=== PATIENT | male | born 1970 | race Caucasian/White ===

== ENCOUNTER 2018-08-23 16:42 | Observation (INO) | payer MEDICAID ==
[~2018-08-23] VITALS: Ht 185.4 cm; Wt 96.2 kg
--- OUTSIDE RECORDS SUMMARY | 2018-08-23 16:46 | XMS ---
PreManage Notification: DOROTHEA ALAN Security Dictaphone Operator Events No recent Security Events currently on file CRITERIA MET - 6 ED Visits in 6 Months CARE PROVIDERS TRISTAN NEELY Counselor: Mental Health Current PHONE: [phone] JAVI MUÑIZ Physician Director Of Event Sales 07/27/2018-Current PHONE: Unknown [place] Counselor: Mental Health Current PHONE: [phone] PCP_Unattributed Primary Care 07/27/2018-Current PHONE: Unknown ANTONINO Srinivasan Primary Care 09/16/2017-Current PHONE: Unknown ROSELYN MUÑIZ Primary Care Current PHONE: Unknown Yasmine has no Care Guidelines for this patient. [place] VISIT COUNT (12 MO.) 4 [facility] TOTAL 7 NOTE: Visits indicate total known visits. ED/UCC VISIT TRACKING (12 MO.) 08/23/2018 16:43 [facility] [place] TYPE: Emergency COMPLAINT: - VOMITING 05/29/2018 18:21 [facility] [place] TYPE: Emergency DIAGNOSES: - Diarrhea - Diarrhea, unspecified - suicidal - Major depressive disorder, single episode, unspecified 05/14/2018 14:18 [facility] TYPE: Emergency DIAGNOSES: - Poisoning by benzodiazepines, intentional self-harm, initial encounter - Poisoning by unspecified drugs, medicaments and biological substances, intentional self-harm, initial encounter - Poisoning by beta-adrenoreceptor antagonists, intentional self-harm, initial encounter - Poisoning by calcium-channel blockers, intentional self-harm, initial encounter - Hypoglycemia 05/12/2018 19:40 [facility] TYPE: Emergency DIAGNOSES: - Suicide Attempt - Poisoning by unspecified drugs, medicaments and biological substances, intentional self-harm, initial encounter - Drug Overdose 04/27/2018 14:57 [facility] [place] TYPE: Emergency DIAGNOSES: - Cardiomyopathy, unspecified - Other specified diabetes mellitus without complications - Hypoglycemia, unspecified - long-term (current) use of insulin - Hypoglycemia - Poisoning by insulin and oral hypoglycemic [antidiabetic] drugs, undetermined, initial encounter - Adjustment disorder with depressed mood 04/10/2018 10:14 [facility] COMPLAINT: - PT STATES CHEST PAIN 02/04/2018 19:04 [facility] [place] TYPE: Emergency COMPLAINT: - SEVERE HYPERGLYCEMIA,NEW DX OF DM,VOL DEPL INPATIENT VISIT TRACKING (12 MO.) 05/19/2018 18:57 [facility]DANA DORSEY M[facility] TYPE: Psychiatric Services DIAGNOSES: - Poisoning by unspecified drugs, medicaments and biological substances, intentional self-harm, initial encounter 05/14/2018 20:02 [facility] CHANDANA DORSEY M.C[facility] TYPE: Medical Surgical DIAGNOSES: - Poisoning by unspecified drugs, medicaments and biological substances, intentional self-harm, initial encounter 05/12/2018 21:54 [facility] [place] H. TYPE: Intensive Care DIAGNOSES: - Poisoning by unspecified drugs, medicaments and biological substances, intentional self-harm, initial encounter - Chronic combined systolic (congestive) and diastolic (congestive) heart failure 02/04/2018 19:04 [facility] [place] TYPE: Medical Surgical COMPLAINT: - SEVERE HYPERGLYCEMIA,NEW DX OF DM,VOL DEPL DIAGNOSES: - Type 2 diabetes mellitus with hyperglycemia 09/16/2017 12:21 [facility] [place] TYPE: Medical Surgical COMPLAINT: - CHF EXACERBATION DIAGNOSES: - Acute on chronic systolic (congestive) heart failure [email or web address]
[2018-08-23] MEDS ORDERED: COREG6.25 MG PO ×2 (16:59→17:04)
[2018-08-23] MEDS ORDERED: KLOR-CON 1010 MEQ PO (17:00)
[2018-08-23] MEDS ORDERED: OMEPRAZOLE20 MG PO (17:01)
[2018-08-23] MEDS ORDERED: NORVASC5 MG PO (17:01)
[2018-08-23] MEDS ORDERED: METOLAZONE5 MG PO (17:02)
[2018-08-23] MEDS ORDERED: BUPROPION XL150 MG PO (17:03)
[2018-08-23] MEDS ORDERED: PAXIL20 MG PO (17:03)
[2018-08-23] MEDS ORDERED: FUROSEMIDE20 MG PO (17:04)
[2018-08-23] MEDS ORDERED: TORSEMIDE100 MG PO (17:05)
[2018-08-23] MEDS ORDERED: LISINOPRIL5 MG PO (17:05)
[2018-08-23] MEDS ORDERED: BUSPIRONE HCL7.5 MG PO (17:05)
[2018-08-23] MEDS ORDERED: ADULT ASPIRIN R81 MG PO (17:06)
[2018-08-23] MEDS ORDERED: PROZAC10 MG PO (17:06)
[2018-08-23] MEDS ORDERED: LOSARTAN POTASS25 MG PO (17:06)
--- NOTE | 2018-08-23 21:00 | NUR ---
PT ADMITTED TO ROOM 126. PT IS A MED-SURG PATIENT, BUT IS HOUSE CONVENIENCED AT THIS TIME. PT ARRIVED WITH HIS SISTER AT THE BED SIDE. PT IS PLEASANT AND COOPERATIVE. PT IS AGREEABLE TO PLAN OF CARE. WILL CONTINUE TO CLOSELY MONITOR.
--- NOTE | 2018-08-23 22:15 | NUR ---
MEDICATIONS ADMINISTERED. PT EDUCATED TO CALL IF HE NEEDS ANYTHING OR NEEDS TO GET UP. UPDATED ON PLAN OF CARE. PT HAS JELLOS, BROTH, AND WATER AT BEDSIDE AND IS TOLERATING THEM WELL SO FAR. PT DENIES N/V. PT USES URINAL AT THE BEDSIDE. WILL CONTINUE TO MONITOR.
--- NOTE | 2018-08-23 22:45 | NUR ---
PT CALLED AND STATED "I JUST FEEL JITTERY, AND ANXIOUS". DISCUSSED WITH PATIENT RELAXATION OPTIONS AND MEDICATION. DECREASED STIMULATION IN PTS ROOM AND GAVE PRN ATIVAN FOR INCREASED ANXIETY. PT DENIES ANY OTHER NEEDS AT THIS TIME. WILL CONTINUE TO CLOSELY MONTIOR.
--- NOTE | 2018-08-24 00:05 | NUR ---
ADMIT TO CCU PER STRETCHER. IS ALERT AND ORIENTED AND GOOD HISTORIAN. HAS DRSG IN PLACE TO L HIP. HAD HIP REPAIR IN JULY FOR FX HIP. WAS INFORMED DRSG WAS CHANGED TODAY AT [facility] WHERE PT HAS BEEN RECIEVING REHAB. HAS LARGE BRUISE L POST BUTTOCKS AND DISCOLORING DOWN L LEG. ALSO HAS DARK BLUE BRUISE R LOWER LEG/R ANKLE AREA. ATTENDS REMOVED, 16F FLOREZ CATH INSERTED WITHOUT PROBLEM, RETURN YELLOW URINE. PT ARRIVED TO UNIT IN NSR. ORAL CARDIZEM GIVEN ON ARRIVAL.WILL HOLD CARDIZEM INFUSION FOR NOW. WITH PT AND HE STATED HE WAS TOLD THAT PT'S CONDITION WAS DUE TO HER CANCER AND ASKED REPEATEDLY IF THIS WAS SO. DID AFIRM THAT PT'S OVERALL WEAKNESS WAS PROBABLY DUE TO CANCER AND THAT THE DYSRYTHMIA COULD BE. DID LEAVE TO GO HOME AFTER REASURANCE.
--- NOTE | 2018-08-24 00:50 | NUR ---
PT RESTING WELL. PT HAS CALL LIGHT IN REACH. PTS SISTER CALLED TO CHECK IN ON PT. VITAL SIGNS REMAIN STABLE. PT IS ON THE HEART MONITOR PER ORDERS. WILL CONTINUE TO CLOSELY MONTIOR.
--- NOTE | 2018-08-24 02:27 | NUR ---
PT RESTING IN BED ON HIS SIDE. PT HAS URINAL AT BEDSIDE. PT DENIES ANY NEEDS AT THIS TIME. WILL CONTINUE TO CLOSELY MONITOR.
--- NOTE | 2018-08-24 04:36 | NUR ---
PT RESTING IN BED. VITALS STABLE. PT USING URINAL INDEPENDENTLY. PT CALLS APPROPRIATELY. WILL CONTINUE TO CLOSELY MONITOR.
--- NOTE | 2018-08-24 05:30 | NUR ---
PT RSTING IN BED. FRESH WATER AT BEDSIDE. URINAL EMPTIED. PT STATES "THIS IS THE BEST I HAVE FELT IN DAYS, AND THE BEST SLEEP I HAVE GOTTEN". PT DENIES NAUSEA AND ABDOMINAL PAIN. WILL CONTINUE TO CLOSELY MONITOR.
--- NOTE | 2018-08-24 07:30 | NUR ---
INTRODUCED MYSELF TO PT- HE'S RESTING IN BED WITH NO C/O PAIN. HE STATES HIS N/V HAS GONE AWAY AND HE WOULD LIKE TO EAT SOLIDS. WILL FOLLOW UP ON THIS WITH DR. JACKSON. PT DENIES ANY FURTHER NEEDS RIGHT NOW. CALL LIGHT WITHIN REACH. WILL CONTINUE TO MONITOR.
--- NOTE | 2018-08-24 08:30 | NUR ---
DR. GARCIA ROUNDED ON PATIENT THIS MORNING, DIET ADVANCED TO BLAND/SOFT. PATIENT ABLE TO EAT BREAKFAST. MORNING MEDICAITONS ADMINISTERED. NO COMPLAINTS OF PAIN OR NAUSEA. APPEARS AAOX3. PLAN FOR PATIENT TO STAY FOR AWHILE TODAY FOR FURTHER OBSERVATION.
--- NOTE | 2018-08-24 08:41 | NUR ---
ASSESSMENT COMPLETED AT THIS TIME. PT IS PLEASANT, CALM AND COOPERATIVE WITH A FLAT AFFECT. PT DENIES PAIN, N/V AND SOB. HE STATES HE FEELS "MUCH BETTER." PT IS ASKING ABOUT WHEN HE CAN ADVANCE HIS DIET AND START EATING SOLIDS. CLEAR LUNG SOUNDS. ROOM AIR. ADEQUATE URINE OUTPUT. PT ASKING ABOUT WHEN HE CAN GO HOME. EDUCATION COMPLETED WITH PT. HE DENIES ANY FURTHER NEEDS AT THIS TIME. CALL LIGHT WITHIN REACH. WILL CONTINUE TO MONITOR.
--- NOTE | 2018-08-24 10:46 | NUR ---
PATIENT REQUESTING MORE FOOD, DISCUSSED [facility] PRIMARY NURSE. PATIENT ORDERED SALMON, AND RICE. DENIES ANY OTHER NEEDS AT THIS TIME. RESTING BACK IN BED. CALL [facility] WITHIN REACH.
--- NOTE | 2018-08-24 11:35 | NUR ---
PT HAS EATEN 100% OF HIS SALMON AND RICE. PT STILL DENIES N/V. NO ABD PAIN OR DISCOMFORT. PT VERY PLEASANT. CALL LIGHT WITHIN REACH. WILL CONTINUE TO MONITOR.
[2018-08-24] MEDS ORDERED: ALDACTONE25 MG PO (11:44)
--- NOTE | 2018-08-24 12:35 | NUR ---
NOTIFIED DR. JACKSON AT THIS TIME OF PT'S STATEMENT THAT HE CONTINUES TO HAVE NO N/V. NO PAIN. HE STATES THAT HE FEELS WELL WITHOUT PAIN. PLAN IS TO RECHECK BMP AND POSSIBLE DC TODAY. ASSESSMENT COMPLETED AGAIN AT THIS TIME. NO CHANGES FROM EARLIER ASSESSMENT. PT DENIES ANY NEEDS TO BE MET AT THIS TIME. CALL LIGHT WITHIN REACH. WILL CONTINUE TO MONITOR.
--- NOTE | 2018-08-24 13:21 | NUR ---
MED REC COMPLETE
== END 2018-08-24 15:00 | disposition home or self-care (01) ==
LOC: ED 16:42 → CCU 16:44
PROVIDERS: ADMIT Internal Medicine
DX: N17.9 Acute kidney failure, unspecified (principal); R11.2 Nausea with vomiting, unspecified; R10.9 Unspecified abdominal pain; E86.0 Dehydration; M79.10 Myalgia, unspecified site; E11.22 Type 2 diabetes mellitus with diabetic chronic kidney disease; N18.3 Chronic kidney disease, stage 3 (moderate); I50.23 Acute on chronic systolic (congestive) heart failure; F32.9 Major depressive disorder, single episode, unspecified; F41.9 Anxiety disorder, unspecified; F43.10 Post-traumatic stress disorder, unspecified; I42.0 Dilated cardiomyopathy; I08.3 Combined rheumatic disorders of mitral, aortic and tricuspid valves; Z88.8 Allergy status to other drugs, medicaments and biological substances; Z87.891 Personal history of nicotine dependence; Z79.82 Long term (current) use of aspirin; Z79.899 Other long term (current) drug therapy
CPT/HCPCS: 36415; 71045; 80048; 80053; 81001; 83690; 83735; 85025; 87502; 96361; 96374; 96375; 96376; 99285-25; C9113; G0378; J1200; J2060; J2405; J2765; J3480; J7030

== ENCOUNTER 2019-03-02 17:25 | Observation (INO) | payer OTHER ==
[~2019-03-02] VITALS: Ht 185.4 cm; Wt 104.8 kg
[~2019-03-02 17:25] MED LIST: ADULT ASPIRIN R81 MG PO; ALDACTONE25 MG PO; BUPROPION XL300 MG PO; BUSPIRONE HCL30 MG PO; COREG25 MG PO; COREG6.25 MG PO; COZAAR50 MG PO; CRESTOR10 MG PO; FUROSEMIDE20 MG PO; GLUCOPHAGE XR500 MG PO; KLOR-CON 1010 MEQ PO; LAMICTAL100 MG PO; LISINOPRIL5 MG PO; METOLAZONE5 MG PO; NEURONTIN300 MG PO; NORVASC5 MG PO; OMEPRAZOLE20 MG PO; ONDANSETRON HCL4 MG PO; PAXIL20 MG PO; POTASSIUM CHLO20 ME1 PO; PROZAC10 MG PO; SUCRALFATE1 GM PO; TORSEMIDE100 MG PO; VITAMIN B-121000 MCG PO; VITAMIN D5000 UNIT PO
--- OUTSIDE RECORDS SUMMARY | 2019-03-02 17:28 | XMS ---
PreManage Notification: DOROTHEA ALAN Security Exchange Mechanic Events No recent Security Events currently on file CRITERIA MET - Group Notification - [facility] - Has Care Guidelines - [facility] - 2 Visits in 30 Days CARE PROVIDERS MARIETTA HAMILTON Physician Freight Team Associate 01/31/2019-Current PHONE: Unknown TRISTAN NEELY Counselor: Mental Health Current PHONE: [phone] ANTONINO Srinivasan Physician Freight Team Associate 07/27/2018-Current PHONE: Unknown [place] Counselor: Mental Health Current PHONE: [phone] JAVI MUÑIZ Primary Care 07/27/2018-Current PHONE: [phone] ANTONINO Srinivasan Primary Care 09/16/2017-Current PHONE: Unknown ROSELYN MUÑIZ Primary Care Current PHONE: Unknown Guidelines Source: [facility] Guidelines Date: 01/31/2019 Care Coordination: Mental health services provided by [facility].\T\nbsp; Please contact [facility] with mental health concerns.\T\nbsp; Dereck/Rian Thompson: [phone]\T\ nbsp; Yesica: [phone]. 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 01/31/2019 [facility] - PATIENT HAS A FOLLOW UP APT WITH DR HAMILTON-PCP ON Thursday02/02/19 @ 4: 20PM. [place] V[facility] (12 MO.) [facility] [address] [facility] [address] Yasir [facility]ner TOTAL 9 NOTE: Visits indicate total known visits. ED/UCC VISIT TRACKING (12 MO.) [facility]2019 [facility] [place] [facility] COMPLAINT: - BLOOD PRESSURE AND SUGAR ISSUES 02/22/2019 10:04 [facility] [place] TYPE: Emergency COMPLAINT: - NAUSEA, ABD PAIN 01/30/2019 09:37 [facility] [place] TYPE: Emergency COMPLAINT: - VOMITING/CHEST PAIN 08/23/2018 16:43 [facility] [place] TYPE: Emergency COMPLAINT: - VOMITING 05/29/2018 18:21 [facility] TYPE: Emergency DIAGNOSES: - Diarrhea - Diarrhea, unspecified - suicidal - Major depressive disorder, single episode, unspecified 05/14/2018 14:18 [facility] [place] TYPE: Emergency DIAGNOSES: - Poisoning by benzodiazepines, intentional self-harm, initial encounter - Poisoning by unspecified drugs, medicaments and biological substances, intentional self-harm, initial encounter - Poisoning by beta-adrenoreceptor antagonists, intentional self-harm, initial encounter - Poisoning by calcium-channel blockers, intentional self-harm, initial encounter - Hypoglycemia 05/12/2018 19:40 [facility] [place] TYPE: Emergency DIAGNOSES: - Suicide Attempt - Poisoning by unspecified drugs, medicaments and biological substances, intentional self-harm, initial encounter - Drug Overdose 04/27/2018 14:57 [facility] TYPE: Emergency DIAGNOSES: - Cardiomyopathy, unspecified - Other specified diabetes mellitus without complications - Hypoglycemia, unspecified - exterminator helper (current) use of insulin - Hypoglycemia - Poisoning by insulin and oral hypoglycemic [antidiabetic] drugs, undetermined, initial encounter - Adjustment disorder with depressed mood 04/10/2018 10:14 [facility] [place] TYPE: Emergency COMPLAINT: - PT STATES CHEST PAIN INPATIENT VISIT TRACKING (12 MO.) 02/22/2019 10:05 [facility] [place] TYPE: Observation COMPLAINT: - NAUSEA, ABD PAIN DIAGNOSES: - Fatty (change of) liver, not elsewhere classified - Gastritis, unspecified, without bleeding - Nausea with vomiting, unspecified - Diaphragmatic hernia without obstruction or gangrene - Chronic systolic (congestive) heart failure - Nausea - Other ill-defined heart diseases - Other [place] [facility] [place] (current[place] drug therapy - Gastric ulcer, unspecified as acute or chronic, without hemorrhage or perforation - Type 2 diabetes mellitus with diabetic neuropathy, unspecified - Personal history of other diseases of the circulatory system - Allergy status to other drugs, medicaments and biological substances status - Anxiety disorder, unspecified - shelter (current) use of aspirin - Personal history of nicotine dependence - Esophagitis, unspecified - Hypokalemia - Right upper quadrant pain - shelter (current) use of oral hypoglycemic drugs 01/30/2019 09:38 [facility] [place] TYPE: Observation COMPLAINT: - HYPOKALEMIA DIAGNOSES: - Personal history of nicotine dependence - Nausea with vomiting, unspecified - Post-traumatic stress disorder, unspecified - Anxiety disorder, unspecified - Chronic systolic (congestive) heart failure - Other [place] [facility] [place] (current) drug therapy - Dehydration - Hypokalemia - Vomiting, unspecified - shelter (current) use of aspirin - Type 2 diabetes mellitus without complications - exterminator helper (current) use of oral hypoglycemic drugs - Allergy status to other drugs, medicaments and biological substances status - Major depressive disorder, single episode, unspecified - Epigastric pain 08/23/2018 16:44 [facility] [place] TYPE: Observation COMPLAINT: - [place] DIAGNOSES: - Major depressive disorder, single episode, unspecified - MYALGIA, UNSPECIFIED SITE - Acute kidney failure, unspecified - Nausea with vomiting, unspecified - Post-traumatic stress disorder, unspecified - Allergy status to other drugs, medicaments and biological substances status - Personal history of nicotine dependence - Anxiety disorder, unspecified - Type 2 diabetes mellitus with diabetic chronic kidney disease - Other [place] [facility] (current) drug therapy - Chronic kidney disease, stage 3 (moderate) - Acute on chronic systolic (congestive) heart failure - Dilated cardiomyopathy - Unspecified abdominal pain - Combined rheumatic disorders of mitral, aortic and tricuspid valves - exterminator helper (current) use of aspirin - Dehydration [facility]19[facility]2018 [facility] DIAGNOSES: - Poisoning by unspecified drugs, medicaments and biological substances, intentional self-harm, initial encounter 05/14/2018 20:02 [facility]: Medical Surgical DIAGNOSES: - Poisoning by unspecified drugs, medicaments and biological substances, intentional self-harm, initial encounter 05/12/2018 21:54 [facility] [place] TYPE: Intensive Care DIAGNOSES: - Poisoning by unspecified drugs, medicaments and biological substances, intentional self-harm, initial encounter - Chronic combined systolic (congestive) and diastolic (congestive) heart failure [email or web address]
--- NOTE | 2019-03-02 21:45 | EKG ---
[facility] [address] [place] [address] Signed Normal sinus rhythm ST \T\ T wave abnormality, consider inferolateral ischemia Abnormal ECG When compared with ECG of 22-FEB-2019 10:16, T wave inversion now evident in Inferior leads Confirmed by JESSICA VIVAR DO ([id number]) on 03/02/2019 9:45:14 PM Electronically Signed By: JESSICA VIVAR DO 03/02/19 2145 PATIENT NAME: DOROTHEA ALAN Electrocardiogram DATE OF : 74 PHYSICIAN: JESSICA VIVAR DO REPORT #: [id number] REPORT IS CONFIDENTIAL AND NOT TO BE RELEASED WITHOUT AUTHORIZATION
--- NOTE | 2019-03-02 22:12 | NUR ---
PATIENT ARRIVED TO THE FLOOR. PATIENT WAS ABLE TO AMBULATE TO THE RESTROOM AND VOID. PATIENTS ADMISSION COMPLETED. PATIENT PLACED ON TELE #10. PATIENTS IV FLUSHED AND IS NO LONGER PATENT. PATIENT OREINTED TO FLOOR, UNIT, AND ROOM. PATIENT VERBALIZED UNDERSTANDING ON USE OF THE CALL LIGHT. LENNOX RN IN THE ROOM TO DO ASSESMENT. NO NEEDS NOTED. CALL LIGHT IN REACH.
--- NOTE | 2019-03-02 23:19 | NUR ---
PATIENT'S IV WAS NOT FUNCTIONAL WHEN HE REACHED THE FLOOR WITH RACHEL, CAT SITTER. OLD IV WAS DC'D AND NEW 22G IV STARTED IN LFA, IV KCL STARTED. PATIENT HAVING NO PAIN. PATIENT VOIDING FINE PER URINAL. MOST OF ADMIT DONE BY CHARGE NURSE ANDRINA. RICHMONDEINT ON TELE#10 IN SR=70'S.
--- NOTE | 2019-03-03 01:05 | NUR ---
PATIENT HAS BEEN RESTING QUIETLY EYES CLOSED AND ON HIS RIGHT SIDE. LAST KCL RIDER FINISHED AND IV SHUT OFF AND FLUSHED AND DISCONNECTED. CALL LIGHT IN REACH.
--- NOTE | 2019-03-03 03:11 | NUR ---
PATIENT RESTING QUIETLY ON HIS LEFT SIDE WITH EYES CLOSED AND RESPIRATIONS EVEN UNTIL ASSESSMENT. NO C/O PAIN. CALL LIGHT IN REACH.
--- NOTE | 2019-03-03 05:06 | NUR ---
Patient has rested well most of the nnight once his admission and IV riders were done. Currently resting on his left side eyes closed and call light in reach.
--- NOTE | 2019-03-03 07:34 | NUR ---
0718: PT RESTING IN BED AND HE AWOKE UPON ENTERING HIS ROOM. REPORT RECIEVED FROM LENNOX MAK. PT DENIES ANY PROBLEMS AT THIS TIME. CALL MICHEL WITHIN REACH.
--- NOTE | 2019-03-03 09:28 | NUR ---
PT RESTING IN HIS BED WITH NO COMPLIANTS OTHER THAN "A SLIGHT HEADACHE". DON DENIES THE NEED FOR ANYTHING FOR HIS ALBRECHT. DON DENIES ANY NAUSEA AT THIS TIME. CALL MICHEL WITHIN REACH. PO RECEIVING IV POTASSIUM ORDERED AT THIS TIME.
--- NOTE | 2019-03-03 10:05 | NUR ---
PATIENT IS RESTING IN BED. WARM WASHCLOTH OFFERED. SHOWER OFFERED IF OK'D BY NURSE. CALL LIGHT IN REACH. NO FURTHER NEEDS AT THIS TIME.
--- NOTE | 2019-03-03 11:45 | NUR ---
MED REC COMPLETE
--- NOTE | 2019-03-03 11:46 | NUR ---
PT DENIES ANY PROBLEMS AT THIS TIME. IV POTASSIUM INFUSION COMPLETED.
--- NOTE | 2019-03-03 12:01 | NUR ---
Heart Failure- Met with patient. He is knowledgable about his medications and EF. He is scheduled for an outpatient heart failure education visit 03/09/19 at 1500 with this service. Weight monitoring: Scale present in home. Symptom management: Addressed monitoring and reporting changes in weight or symptoms utilizing Zones form. He has a Zones magnet at home. Medication routine- has two weekly pill reminder boxes
--- NOTE | 2019-03-03 13:56 | NUR ---
NOTIFIED OF K+ OF 2.9.
--- NOTE | 2019-03-03 13:57 | NUR ---
PT RESTING IN HIS BED WITH NO COMPLAINTS AT THIS TIME.
--- NOTE | 2019-03-03 14:04 | NUR ---
PATIENT RESTING IN BED. IV COVERED FOR SHOWER. WATER REFRESHED. PATIENT DENIES ANY FURTHER NEEDS AT THIS TIME. CALL LIGHT WITHIN REACH.
--- NOTE | 2019-03-03 14:40 | NUR ---
PT SHOWERED AND STATES HE FEELS A BIT BETTER NOW.
--- NOTE | 2019-03-03 15:50 | NUR ---
PT CONTINUES TO DENIE ANY PROBLEMS.
--- NOTE | 2019-03-03 18:05 | NUR ---
PT AMBULATING IN THE HALLS.
--- NOTE | 2019-03-03 20:21 | NUR ---
PATIENT JUST RESTING QUIETLY IN IN BED. NO NEEDS AT THIS TIME. WATCHING TV. CALL LIGHT IN REACH.
--- NOTE | 2019-03-03 20:38 | NUR ---
PTs VS, BS check and I&Os are complete. PT requested fresh ice water and did not need anything further.
--- NOTE | 2019-03-03 21:47 | NUR ---
PATIENT HAD 20MEQ OF KCL MIXED IN 100 CC WITH 20MG LIDOCAINE ADDED WHICH EQUALED 2ML 1% LIDOCAINE TO RUN OVER 2 HOURS. EVEN WITH THAT AND A HEAT PACK AND RUNNING IT WITH 100MLS AN HOUR OF NS TO DILUTE IT, PATIENT WAS CUSSING AND SWEARING DUE TO IV PAIN. STOPPED AND CALLED . HE SAID TO DC THE IV AND GIVE THE PATIENT ANOTHER 20MEQ OF ORAL KCL IN 30 MNUTES. IV KCL DC'D, IV STILL FLUSHES WELL AND DRAWS. PAIN IS GOING AWAY. HEAT PACK STILL IN PLACE. CALL LIGHT IN REACH.
--- NOTE | 2019-03-04 00:15 | NUR ---
PATIENT RESTING QUIETLY ON HIS RIGHT SIDE, RESPIRATIONS REGULAR AND EVEN AT 16. CALL LIGHT IN REACH.
--- NOTE | 2019-03-04 02:11 | NUR ---
PATIENT HAS BEEN RESTING QUIETLY ON HIS RIGHT SIDE, RESPIRATIONS REGULAR AND EVEN, EYES CLOSED CALL LIGHT IN REACH.
--- NOTE | 2019-03-04 04:01 | NUR ---
PATIENT ON HIS RIGHT SIDE IN BED RESTING QUIETLY AND HAS HAD NO COMPLAINTS. EYES CLOSED AT THIS TIME AND CALL LIGHT IN REACH.
--- NOTE | 2019-03-04 05:31 | NUR ---
PATIENT HAD A TOTAL OF 60MEQ OF PO KCL WITH 20MEQ OF THAT BECAUSE THE IV ORDER FOR KCL BURNED THE IV TO BADLY EVEN WITH LIDOCAINE AND EXTRA FLUIDS RUNNING WITH IT. AFTER THAT PATIENT HAS SLEPT WELL MOST OF THE NIGHT, EYES CLOSED, RESPIRATIONS EVEN AND REGULAR AND CALL LIGHT IN REACH. BASICALLY INDEPENDENT IN THE ROOM.
--- NOTE | 2019-03-04 07:17 | NUR ---
0706: REPORT RECEIVED FROM LENNOX MAK. PT SLEEPING, CALL MICHEL WITHIN REACH.
--- NOTE | 2019-03-04 08:06 | NUR ---
PATIENT SITTING UP IN BED TAKING HIS BREAKFAST. ICE WATER GIVEN. SETS UP BATHROOM FOR SHOWER. CALL LIGHT WITHIN REACH. NO OTHER NEEDS AT THIS TIME
--- NOTE | 2019-03-04 08:51 | NUR ---
PT RESTING IN HIS BED WITH NO COMPLAINTS OF PAIN OR SOB. CALL MICHEL WITHIN REACH. POTASSIUM LEVEL HAS INCREASED TO 3.4 THIS AM, ORDERS GIVEN. SEE EMAR.
--- NOTE | 2019-03-04 08:57 | NUR ---
PATIENT RESTING IN BED. RN IN ROOM. VITAL SIGNS AND I&O DONE. CALL LIGHT WITHIN REACH. NO OTHER NEEDS AT THIS TIME
--- NOTE | 2019-03-04 09:52 | NUR ---
PATIENT IV KCL INFUSION SLOWED TO RATE OF 75ML RUNNING CONCURRENT WITH IVF AT 50CC/HOUR.
--- NOTE | 2019-03-04 10:39 | NUR ---
PT STATES HIS IV SITE FEELS MUCH BETTER SINCE THE K+ IV RATE HAD BEEN DECREASED AND THE FLUID RUNNING WITH IT WAS INCREASED. IV SITE APPEARS HEALTHY WITH NO S/S OF INFILTRATION.
--- NOTE | 2019-03-04 13:14 | NUR ---
PT WATCHING TV AND HAS NO COMPLAINTS AT THIS TIME. A DISCUSSION ABOUT CHF TOOK PLACE AND TE STATES HE UNDERSTANDS WHY IT IS IMPORTANT TO WATCH HIS INTAKE AND TO DO DAILY WEIGHTS. TE HAS AN APPOINTMENT WITH [facility] NEXT WEEK.
--- NOTE | 2019-03-04 13:33 | NUR ---
PATIENT RESTING IN BED. VITAL SIGNS AND I&O DONE. ICE WATER GIVEN. CALL LIGHT WITHIN REACH. NO OTHER NEEDS AT THIS TIME
--- NOTE | 2019-03-04 14:26 | NUR ---
K+ IS 3.3, MD AWARE AND NEW ORDERS GIVEN. SEE EMAR.
--- NOTE | 2019-03-04 14:42 | NUR ---
PT HAS HIS FACE IN HIS HANDS AND IS ROCKING BACK AND FORTH AND IS CRYING. HE DENIES ANY PAIN BUT STATES HE IS HAVING SOME ANXIETY. DR VIVAR NOTIFIED. SEE EMAR.
--- NOTE | 2019-03-04 14:53 | NUR ---
Pt's friend in the room visiting with the pt. Pt medicated as ordered for his anxiety. Will continue to monitor.
--- NOTE | 2019-03-04 15:27 | NUR ---
Pt continues resting in bed and he states that his anxiety is now under control. Pt now talking about dinner and is looking at menu. K+ iv continues infusing and the pt is tolerating it well. The iv site appears healthy at this time.
--- NOTE | 2019-03-04 17:08 | NUR ---
PATIENT SITTING UP IN BED. VITAL SIGNS AND I&O DONE. HIGH DYASTOLIC BLOOD PRESSURE. RN NOTIFIED. CALL LIGHT WITHIN REACH. NO OTHER NEEDS AT THIS TIME
--- NOTE | 2019-03-04 17:22 | NUR ---
PT RESTING IN HIS BED AND HE APPEARS IN NO DISTRESS AND HE STATES HIS ANXIETY IS UNDER CONTROL.
--- NOTE | 2019-03-04 18:09 | NUR ---
Pt's K+ level this am was 3.4 and this was replaced and this afternoon it was 3.3. Potassium continues to be replaced both iv and po. The pt is being kept overnight per Dr Wren due to this. The pt is scheduled for another draw at 1900. The pt had an anxiety attack this afternoon and was treated with ativan with good results.
--- NOTE | 2019-03-04 19:10 | NUR ---
IN ROOM FOR REPORT, PT IS AWAKE IN BED. HE DENIES NEEDS AT THIS TIME. CALL LIGHT IS WITHIN REACH.
--- NOTE | 2019-03-04 19:55 | NUR ---
SPOKE WITH DR VIVAR ABOUT PT'S K+ LAB AT 4.0. PT WILL NOT BE RECEIVING MORE K+ TONIGHT THEREFORE TELE WON'T BE NECESSARY. PLAN IS FOR DC IN AM IF K+ REMAINS OK.
--- NOTE | 2019-03-04 21:00 | NUR ---
IN ROOM TO ADMINISTER MEDICATIONS AND COMPLETE ASSESSMENT. PT DENIES PAIN. HE DOES STATE INTERMITTENT SOB WHICH HE STATES HAS BEEN OCCURING ON AND OFF FOR SOME TIME AND CANNOT RELATE IT TO ANXIETY. HIS IV WAS INFILTRATED AND PAINFUL, REMOVED IV, CATH TIP INTACT AND PT TOLERATED WELL. DR VIVAR IS OKAY WITH LEAVING THE IV OUT. PT REPORTS N/T IN BOTTOMS OF FEET. HE DENIES NEEDS AT THIS TIME. CALL LIGHT IS WITHIN REACH.
--- NOTE | 2019-03-04 22:33 | NUR ---
PT STATED THAT HE IS HUNGRY, LAB SCIENTIST BROUGHT HIM A VEGGIE TRAY.
--- NOTE | 2019-03-05 00:10 | NUR ---
PT IS RESTING WITH EYES CLOSED, RESPIRATIONS ARE EVEN AND NONLABORED. CALL LIGHT IS WITHIN REACH.
--- NOTE | 2019-03-05 01:57 | NUR ---
PT IS RESTING WITH EYES CLOSED, RESPIRATIONS ARE EVEN AND NONLABORED. CALL LIGHT IS WITHIN REACH.
--- NOTE | 2019-03-05 03:25 | NUR ---
PT IS RESTING WITH EYES CLOSED, RESPIRATIONS ARE EVEN AND NONLABORED. CALL LIGHT IS CLOSE.
--- NOTE | 2019-03-05 05:29 | NUR ---
PT IS RESTING WITH EYES CLOSED, RR IS EVEN AND NONLABORED. CALL LIGHT IS WITHIN REACH.
--- NOTE | 2019-03-05 06:28 | NUR ---
PT IS ON AN 60 G CARB DIET WITH 2G SODIUM RESTRICTION. HIS DAILY WEIGHT THIS MORNING WAS 231LBS. LAST NIGHT'S K+ WAS 4.0. PT HAS NO IV WHICH IS OKAY WITH DR VIVAR. PT AMBULATES SBA/IND. UO IS QS AND LAST BM WAS YESTERDAY. PT MAY DC TODAY AND WOULD LIKE AN ESTIMATE OF WHAT TIME.
--- NOTE | 2019-03-05 07:26 | NUR ---
BEDSIDE REPORT RECEIVED FROM NOC RN, PT IS AWAKE AND INTERACTIVE. UP IN BED, BREAKFAST ORDERED, PT IS UPBEAT AND CONVERSIVE. DENIES DISCOMFORTS REQUESTS EARLY NOTIFICATION OF DC SO HE CAN NOTIFY HIS SENIOR ADVISORY. DENIES NEEDS AT THIS TIME.
[2019-03-05] MEDS ORDERED: POTASSIUM CHLO20 ME1 PO (08:52)
[2019-03-05] MEDS ORDERED: TORSEMIDE20 MG PO (08:53)
--- NOTE | 2019-03-05 09:17 | NUR ---
DR VIVAR INTO SEE PT WRITES DC ORDERS. PT OFFERED SHOWER AND ASSISTANCE REFUSES BOTH.
--- NOTE | 2019-03-05 09:36 | NUR ---
PHARMACIST REVIEWS MEDS AND CHANGES WITH PT HE ASKS APPROPRIATE QUESTIONS VERBALIZES UNDERSTANDING. DC INSTRUCTIONS GIVEN BY THIS MOTORCOACH OPERATOR, PT VERBALIZES UNDERSTANDING AGREES TO F/U WITH MD SCHEDULED.
--- NOTE | 2019-03-05 09:49 | NUR ---
FINAL VITALS TAKEN BP OF 134/[address] VIVAR NO NEW ORDERS. PT DENIES ANY QUESTIONS OR CONCERNS, AGREES HE IS CLEAR ON DC INSTRUCTIONS. PT WAITING FOR HIS RIDE AT THIS TIME
== END 2019-03-05 11:40 | disposition home or self-care (01) ==
LOC: ED 17:25 → MS 17:26
PROVIDERS: ADMIT Student in an Organized Health Care Education/Training Program
DX: E87.6 Hypokalemia (principal); I50.22 Chronic systolic (congestive) heart failure; I40.0 Infective myocarditis; B97.89 Other viral agents as the cause of diseases classified elsewhere; I10 Essential (primary) hypertension; E11.9 Type 2 diabetes mellitus without complications; F32.9 Major depressive disorder, single episode, unspecified; F41.9 Anxiety disorder, unspecified; F43.10 Post-traumatic stress disorder, unspecified; Z88.8 Allergy status to other drugs, medicaments and biological substances; Z87.891 Personal history of nicotine dependence; Z79.84 Long term (current) use of oral hypoglycemic drugs; Z79.82 Long term (current) use of aspirin; Z79.899 Other long term (current) drug therapy
CPT/HCPCS: 36415; 80048; 80053; 83690; 83735; 83880; 84100; 84132; 85025; 93005; 93010; 96365; 96374; 96375; 96376; 99284-25; C9113; G0378; J1815; J2060; J2405; J2550; J3480; J7060

== ENCOUNTER 2019-06-29 07:54 | Emergency (ER) | payer OTHER ==
[~2019-06-29] VITALS: Ht 185.4 cm; Wt 105.8 kg
[~2019-06-29 07:54] MED LIST changes: +TORSEMIDE20 MG PO
--- OUTSIDE RECORDS SUMMARY | 2019-06-29 07:58 | XMS ---
PreManage Notification: DOROTHEA ALAN Security Distillation Operator Helper Events No recent Security Events currently on file CRITERIA MET - Group Notification - [facility] Guidelines - [facility] CARE PROVIDERS MARIETTA HAMILTON Physician Fish Hatchery Worker 01/31/2019-Dayne CAIN PHONE: Unknown ANTONINO Srinivasan Physician Fish Hatchery Worker 07/27/2018-Current PHONE: Unknown [place] Counselor: Mental Health Current PHONE: [phone] ANTONINO Srinivasan Primary Care 07/27/2018-Current PHONE: Unknown ROSELYN MUÑIZ Primary Care Current PHONE: Unknown Guidelines Source: Clarissa \[employer]\ [facility] [place] IPA Guidelines Date: 03/04/2019 Care Coordination: Pt. is enrolled with [facility] case management, OBDULIO Murphy and BRITANY Whitehead\\[employer]; please contact [facility] if pt. presents to ED. Fax over any documents the ED would liked followed up on EDY.\TNewsMaven; FAX: [phone]\MessageParty; Additional care guidelines exist for the following facilities: [facility] ( 01/31/2019 ) Care History Medical/Surgical 02/23/2019 [facility] CHF HISTORY EF 20% RELATED TO VIRAL MYOCARDITIS GASTRIC ULCER - ON PROTON PUMP DAILY HIXTORY DM2 ANXIETY DISORDER 02/22/2019 [facility] - [facility] CASE MANAGEMENT REFERRAL MADE ON ON 02/01/19. 01/31/2019 [facility] - PATIENT HAS A FOLLOW UP APT WITH DR HAMILTON-PCP ON Thursday02/02/19 @ 4: 20PM. E.D. VISIT COUNT (12 MO.) [address] [facility] TOTAL 5 NOTE: Visits indicate total known visits. ED/UCC VISIT TRACKING (12 MO.) 06/29/2019 07:55 [facility] [place] TYPE: Emergency COMPLAINT: - NAUSEA, VOMITING 03/02/2019 17:25 [facility] [place] TYPE: Emergency COMPLAINT: - BLOOD PRESSURE AND SUGAR ISSUES 02/22/2019 10:04 [facility] [place] TYPE: Emergency COMPLAINT: - NAUSEA, ABD PAIN 01/30/2019 09:37 [facility] TYPE: Emergency COMPLAINT: - VOMITING/CHEST PAIN 08/23/2018 16:43 [facility] TYPE: Emergency COMPLAINT: - VOMITING INPATIENT VISIT TRACKING (12 MO.) 03/02/2019 17:26 [facility] TYPE: Observation COMPLAINT: - HYPOKALEMIA DIAGNOSES: - Hypokalemia - custodial (current) use of aspirin - Oth viral agents as the cause of diseases classd elswhr - Major depressive disorder, single episode, unspecified - termite treater (current) use of oral hypoglycemic drugs - Anxiety disorder, unspecified - Post-traumatic stress disorder, unspecified - Essential (primary) hypertension - 1 Type 2 diabetes mellitus without complications - Infective myocarditis - Allergy status to oth drug/meds/biol subst status - Personal history of nicotine dependence - Other termite exterminator (current) drug therapy - Chronic systolic (congestive) heart failure 02/22/2019 10:05 [facility] [place] TYPE: Observation COMPLAINT: - NAUSEA, ABD PAIN DIAGNOSES: - Fatty (change of) liver, not elsewhere classified - Gastritis, unspecified, without bleeding - Nausea with vomiting, unspecified - Diaphragmatic hernia without obstruction or gangrene - Chronic systolic (congestive) heart failure - Nausea - Other ill-defined heart diseases - Other termite exterminator (current) drug therapy - Gastric ulcer, unsp as acute or chronic, w/o hemor or perf - 1 Type 2 diabetes mellitus with diabetic neuropathy, unsp - Personal history of other diseases of the circulatory system - Allergy status to oth drug/meds/biol subst status - Anxiety disorder, unspecified - termite treater (current) use of aspirin - Personal history of nicotine dependence - Esophagitis, unspecified - Hypokalemia - Right upper quadrant pain - custodial (current) use of oral hypoglycemic drugs 01/30/2019 09:38 [facility] [place] TYPE: Observation COMPLAINT: - HYPOKALEMIA DIAGNOSES: - Personal history of nicotine dependence - Nausea with vomiting, unspecified - Post-traumatic stress disorder, unspecified - Anxiety disorder, unspecified - Chronic systolic (congestive) heart failure - Other termite exterminator (current) drug therapy - Dehydration - Hypokalemia - Vomiting, unspecified - custodial (current) use of aspirin - 1 Type 2 diabetes mellitus without complications - custodial (current) use of oral hypoglycemic drugs - Allergy status to oth drug/meds/biol subst status - Major depressive disorder, single episode, unspecified - Epigastric pain 08/23/2018 16:44 [facility] [place] TYPE: Observation COMPLAINT: - NORMAN DIAGNOSES: - Major depressive disorder, single episode, unspecified - MYALGIA, UNSPECIFIED SITE - Acute kidney failure, unspecified - Nausea with vomiting, unspecified - Post-traumatic stress disorder, unspecified - Allergy status to oth drug/meds/biol subst status - Personal history of nicotine dependence - Anxiety disorder, unspecified - 1 Type 2 diabetes mellitus w diabetic chronic kidney disease - Other jail (current) drug therapy - 1 Chronic kidney disease, stage 3 (moderate) - Myalgia, unspecified site - Acute on chronic systolic (congestive) heart failure - Dilated cardiomyopathy - Unspecified abdominal pain - Comb rheumatic disord of mitral, aortic and tricuspid valves - termite treater (current) use of aspirin - Dehydration [email or web address]
[2019-06-29] MEDS ORDERED: ZOFRAN4 MG PO (10:42)
[2019-06-29] MEDS ORDERED: PROMETHAZINE12.5 M1 PO (10:42)
== END 2019-06-29 11:10 | disposition home or self-care (01) ==
LOC: ED 07:54
DX: R11.2 Nausea with vomiting, unspecified (principal); E11.9 Type 2 diabetes mellitus without complications; F32.9 Major depressive disorder, single episode, unspecified; F41.9 Anxiety disorder, unspecified; F43.10 Post-traumatic stress disorder, unspecified; Z91.048 Other nonmedicinal substance allergy status; Z88.8 Allergy status to other drugs, medicaments and biological substances; Z79.899 Other long term (current) drug therapy; Z79.82 Long term (current) use of aspirin; Z79.84 Long term (current) use of oral hypoglycemic drugs
CPT/HCPCS: 80053; 81001; 83690; 85025; 87502; 96361; 96374; 96375; 96376; 99284-25; J2405; J2550; J7030

== ENCOUNTER 2020-11-20 13:18 | Emergency (ER) | payer MEDICARE, OTHER ==
[~2020-11-20] VITALS: Ht 188 cm; Wt 109.9 kg
[~2020-11-20 13:18] MED LIST changes: +CELECOXIB200 MG PO; +HYDROCODON-ACE1 EA11 PO; +IRON325 M1 PO; +JANUVIA50 MG PO; +JARDIANCE25 MG PO; +ONDANSETRON ODT8 MG PO; +PROMETHAZINE HC25 M1 PO; +PROMETHAZINE12.5 M1 PO; +SPIRONOLACTONE25 MG PO; +VICTOZA 2-0.6 MG/0.1 SUB-Q; +ZOFRAN4 MG PO
--- OUTSIDE RECORDS SUMMARY | 2020-11-20 13:24 | XMS ---
PreManage Notification: DOROTHEA ALAN Security Developmental Specialist Events No recent Security Events currently on file CRITERIA MET - Group Notification CARE PROVIDERS MARIETTA HAMILTON Physician Produce Weigher 01/31/2019-Current [facility]ONE[facility]Current PHONE: [phone] ROSELYN MUÑIZ Physician Produce Weigher 07/27/2018-Current PHONE: Unknown Cj Cisneros Eligibility Services Representative/Help Desk Intern 11/09/2018-Current PHONE: [phone] [place] Counselor: Mental Health Current PHONE: [phone] Care Guidelines exist for the following facilities: [facility] ( 09/10/2020 ) [facility] ( 08/27/2020 ) Care History Medical/Surgical 02/23/2019 [facility] CHF HISTORY EF 20% RELATED TO VIRAL MYOCARDITIS GASTRIC ULCER - ON PROTON PUMP DAILY HIXTORY DM2 ANXIETY DISORDER 02/22/2019 [facility] - [facility] CASE MANAGEMENT REFERRAL MADE ON ON 02/01/19. 01/31/2019 [facility] - PATIENT HAS A FOLLOW UP APT WITH DR HAMILTON-PCP ON Thursday02/02/19 @ 4: 20PM. E.D. VISIT COUNT ([address] [facility]. TOTAL 1 NOTE: Visits indicate total known visits. ED/UCC VISIT TRACKING (12 MO.) 11/20/2020 13:[address] [facility] [place] TYPE: Emergency COMPLAINT: - COLD SYMPTOMS INPATIENT VISIT TRACKING (12 MO.) No inpatient visits to display in this time frame [email or web address]
== END 2020-11-20 16:30 | disposition home or self-care (01) ==
LOC: ED 13:18
DX: B34.9 Viral infection, unspecified (principal); Z20.822 Contact with and (suspected) exposure to COVID-19; I50.9 Heart failure, unspecified; E11.9 Type 2 diabetes mellitus without complications; Z91.048 Other nonmedicinal substance allergy status; Z88.8 Allergy status to other drugs, medicaments and biological substances; Z79.899 Other long term (current) drug therapy; Z79.82 Long term (current) use of aspirin; Z79.84 Long term (current) use of oral hypoglycemic drugs
CPT/HCPCS: 71045; 80053; 85025; 96374; 96375; 99283-25; C9803; J1885; J2405; J7030; U0003

== ENCOUNTER 2023-08-28 13:04 | Emergency (ER) | payer MEDICARE, OTHER ==
[~2023-08-28] VITALS: Ht 188 cm; Wt 104.9 kg
[2023-08-28] MEDS ORDERED: SODIUM CHLORIDE 0.9% 1,000 ML IV ONE (13:30)
[2023-08-28] MEDS ORDERED: ondansetron HCL 4 MG/2 ML VIAL IV PRN (13:30)
[2023-08-28 13:45] LABS: BASOPHILS 0.5 % (0-2); EOSINOPHILS 0.2 % (0-6); HEMATOCRIT 43.4 % (35.0-50.0); MCH 29.2 (27-36); MCHC 34.6 g/dl (30-36); MCV 84.3 fl (81-99); MONOCYTES 13.4 % (0-12); NEUTROPHILS 79.9 % (39-80); PLATELET COUNT 216 K/uL (140-440); RBC 5.15 M/ul (4.3-5.7); RDW 13.1 (10.5-15.0)
[2023-08-28] MEDS ORDERED: ONDANSETRON ODT4 MG PO (13:52)
[2023-08-28] MEDS ORDERED: CHLORPROMAZINE100 MG PO (13:52)
[2023-08-28] MEDS ORDERED: OLMESARTAN MEDO20 MG PO (13:52)
[2023-08-28] MEDS ORDERED: CAPLYTA42 MG PO (13:52)
[2023-08-28] MEDS ORDERED: FENOFIBRATE200 MG PO (13:53)
[2023-08-28] MEDS ORDERED: OZEMPIC0.25 MG/02 SUB-Q (13:53)
[2023-08-28 14:00] LABS: ALBUMIN 4.3 g/dL (3.4-5.0); ALBUMIN/GLOBULIN RATIO 1.23 (1.1-2.4); ANION GAP 18.7 (7-21); BILIRUBIN, TOTAL 0.7 ng/dL (0.2-1.0); BUN/CREATININE RATIO 10.71 (6.0-28.6); CALCIUM 9.2 mg/dL (8.5-10.1); CREATININE, SERUM 1.4 mg/dL (0.70-1.30); POTASSIUM 3.7 mmol/L (3.5-5.1); PROTEIN, TOTAL 7.8 g/dL (6.4-8.2)
[2023-08-28] MEDS ORDERED: ACETAMINOPHEN 500 MG TAB PO ONE (14:00)
[2023-08-28 14:20] LABS: INFLUENZA B NAA NEGATIVE (NEGATIVE); RESPIRATORY SYNCYTIAL VIR NAA NEGATIVE (NEGATIVE)
[2023-08-28] MEDS ORDERED: KETOROLAC TROMETHAMINE 30 MG/ML VIAL IV ONE (15:15)
[2023-08-28] MEDS ORDERED: carvediloL 25 MG TAB PO ONE (16:00)
[2023-08-28] MEDS ORDERED: SODIUM CHLORIDE 0.9% 500 ML IV PRN (16:00)
[2023-08-28 16:49] VITALS: BP 144/92
--- NOTE | 2023-08-28 22:00 | EKG ---
[facility] [address] [facility] [place] [address] Signed Sinus tachycardia Otherwise normal ECG When compared with ECG of 02-MAR-2019 20:13, T wave inversion no longer evident in Inferior leads Confirmed by Devang Pierson MD () on 08/28/2023 10:00:08 PM Electronically Signed By: DEVANG PIERSON MD 08/28/232199 PATIENT NAME: DAYANNADOROTHEA FLORENCE Electrocardiogram DATE OF : 74 PHYSICIAN: DEVANG PIERSON MD REPORT #: [id number] REPORT IS CONFIDENTIAL AND NOT TO BE RELEASED WITHOUT AUTHORIZATION
== END 2023-08-28 16:47 | disposition home or self-care (01) ==
LOC: ED 13:04
PROVIDERS: Emergency Medicine
DX: J10.1 Influenza due to other identified influenza virus with other respiratory manifestations (principal); Z91.148 Patient's other noncompliance with medication regimen for other reason; I11.0 Hypertensive heart disease with heart failure; I50.9 Heart failure, unspecified; E11.9 Type 2 diabetes mellitus without complications; F32.A Depression, unspecified; F41.9 Anxiety disorder, unspecified; F43.10 Post-traumatic stress disorder, unspecified; Z91.048 Other nonmedicinal substance allergy status; Z88.8 Allergy status to other drugs, medicaments and biological substances; Z79.899 Other long term (current) drug therapy; Z79.85 Long-term (current) use of injectable non-insulin antidiabetic drugs; Z79.84 Long term (current) use of oral hypoglycemic drugs; Z79.82 Long term (current) use of aspirin
CPT/HCPCS: 36415; 71045; 80053; 85025; 87502; 93005; 93010; 96361; 96374; 96375; 96376; 99284-25; A9270; J1885; J2405; J7030; J7040; U0002

== ENCOUNTER 2023-09-01 09:14 | Emergency (ER) | payer MEDICARE, OTHER ==
[~2023-09-01] VITALS: Ht 188 cm; Wt 98.4 kg
[~2023-09-01 09:14] MED LIST changes: +CAPLYTA42 MG PO; +CHLORPROMAZINE100 MG PO; +FENOFIBRATE200 MG PO; +OLMESARTAN MEDO20 MG PO; +ONDANSETRON ODT4 MG PO; +OZEMPIC0.25 MG/02 SUB-Q
[2023-09-01] MEDS ORDERED: SODIUM CHLORIDE 0.9% 1,000 ML IV ONE ×2 (09:45→11:45)
[2023-09-01] MEDS ORDERED: KETOROLAC TROMETHAMINE 30 MG/ML VIAL IV ONE (09:45)
[2023-09-01] MEDS ORDERED: ondansetron HCL 4 MG/2 ML VIAL IV ONE ×2 (09:45→11:45)
[2023-09-01 09:58] LABS: BASOPHILS 0.1 % (0-2); HEMATOCRIT 49.2 % (35.0-50.0); HEMOGLOBIN 16.9 g/dL (12.0-18.0); LYMPHOCYTES 15.3 % (24-44); MCH 28.7 (27-36); MCHC 34.3 g/dl (30-36); MCV 83.8 fl (81-99); MONOCYTES 17.3 % (0-12); NEUTROPHILS 67.3 % (39-80); PLATELET COUNT 175 K/uL (140-440); RBC 5.88 M/ul (4.3-5.7); RDW 13.4 (10.5-15.0)
[2023-09-01 10:12] LABS: ALBUMIN 3.8 g/dL (3.4-5.0); ALBUMIN/GLOBULIN RATIO 0.93 (1.1-2.4); ANION GAP 18.2 (7-21); BILIRUBIN, TOTAL 0.6 ng/dL (0.2-1.0); BUN/CREATININE RATIO 12.61 (6.0-28.6); CALCIUM 9.3 mg/dL (8.5-10.1); CREATININE, SERUM 1.11 mg/dL (0.70-1.30); POTASSIUM 3.2 mmol/L (3.5-5.1); PROTEIN, TOTAL 7.9 g/dL (6.4-8.2)
[2023-09-01] MEDS ORDERED: ALBUTEROL/IPRATROPIUM 3 ML NEB INH ONE (13:45)
[2023-09-01] MEDS ORDERED: droPERidol 5 MG/2 ML VIAL IV ONE (14:30)
[2023-09-01] MEDS ORDERED: PROCHLORPERAZIN10 MG PO (15:06)
[2023-09-01 15:28] VITALS: BP 169/96
== END 2023-09-01 15:29 | disposition home or self-care (01) ==
LOC: ED 09:14
PROVIDERS: Emergency Medicine
DX: J11.1 Influenza due to unidentified influenza virus with other respiratory manifestations (principal); E86.0 Dehydration; I50.9 Heart failure, unspecified; E11.9 Type 2 diabetes mellitus without complications; G47.30 Sleep apnea, unspecified; Z88.5 Allergy status to narcotic agent; Z88.8 Allergy status to other drugs, medicaments and biological substances; Z91.048 Other nonmedicinal substance allergy status; Z79.899 Other long term (current) drug therapy; Z79.82 Long term (current) use of aspirin; Z79.84 Long term (current) use of oral hypoglycemic drugs
CPT/HCPCS: 36415; 71045; 80053; 85025; 94640; 96361; 96374; 96375; 96376; 99284-25; J1790; J1885; J2405; J7030

== ENCOUNTER 2024-09-07 14:34 | Emergency (ER) | payer MEDICARE, OTHER ==
[~2024-09-07] VITALS: Ht 188 cm; Wt 100.2 kg
[~2024-09-07 14:34] MED LIST changes: +PROCHLORPERAZIN10 MG PO
[2024-09-07] MEDS ORDERED: SODIUM CHLORIDE 0.9% 1,000 ML IV PRN (17:15)
[2024-09-07] MEDS ORDERED: PROCHLORPERAZINE EDISYLATE 10 MG/2 ML VIAL IV ONE (17:15)
[2024-09-07] MEDS ORDERED: TRULICITY1.5 MG/0.5 SQ (17:49)
[2024-09-07 18:04] LABS: BASOPHILS 0.4 % (0-2); EOSINOPHILS 0.5 % (0-6); HEMATOCRIT 50.8 % (35.0-50.0); HEMOGLOBIN 17.7 g/dL (12.0-18.0); LYMPHOCYTES 22.7 % (24-44); MCH 29.2 (27-36); MCHC 34.8 g/dl (30-36); MCV 83.9 fl (81-99); MONOCYTES 7.8 % (0-12); NEUTROPHILS 68.6 % (39-80); PLATELET COUNT 325 K/uL (140-440); RBC 6.06 M/ul (4.3-5.7)
[2024-09-07] MEDS ORDERED: hydrOXYzine pamoate 50 MG CAP PO ONE (18:15)
[2024-09-07 18:24] LABS: ALBUMIN/GLOBULIN RATIO 1.43 (1.1-2.4); ANION GAP 18.8 (7-21); BILIRUBIN, TOTAL 0.8 mg/dL (0.2-1.0); BUN/CREATININE RATIO 13.17 (6.0-28.6); CALCIUM 10.5 mg/dL (8.5-10.1); CREATININE, SERUM 1.29 mg/dL (0.70-1.30); MAGNESIUM 1.9 mg/dL (1.8-2.4); POTASSIUM 3.8 mmol/L (3.5-5.1); PROTEIN, TOTAL 8.5 g/dL (6.4-8.2)
[2024-09-07] MEDS ORDERED: ONDANSETRON ODT8 MG PO (19:14)
[2024-09-07 19:20] VITALS: BP 149/98
== END 2024-09-07 19:20 | disposition home or self-care (01) ==
LOC: ED 14:34
PROVIDERS: Emergency Medicine
DX: R11.10 Vomiting, unspecified (principal); Z53.21 Procedure and treatment not carried out due to patient leaving prior to being seen by health care provider
CPT/HCPCS: 36415; 80053; 83735; 85025; 96374; 99284-25; J0780; J7030